=== PATIENT | female | born 1935 | race Caucasian/White ===

== ENCOUNTER 2017-10-21 08:37 | Emergency (ER) | payer MEDICARE, BC ==
[2017-10-21] MEDS ORDERED: SODIUM CHLORIDE 0.9% FLUSH 10 ML SOL IV PRN (08:42)
[2017-10-21 09:02] LABS: INR 0.98 (0.86-1.12)
[2017-10-21 09:05] LABS: BASOPHILS % (AUTO) 1 % (0-3); EOSINOPHILS % (AUTO) 1 % (0-9); HEMATOCRIT 43 % (35-47); LYMPHOCYTES % (AUTO) 26.3 % (10-50); MEAN CORPUSCULAR HEMOGLOBIN 29.3 pg (27.0-32.0); MEAN CORPUSCULAR HGB CONC 32.3 gm/dl (32.0-36.0); MEAN CORPUSCULAR VOLUME 91 fL (81-99); MONOCYTES % (AUTO) 5.6 % (0-12); NEUTROPHILS % (AUTO) 66.1 % (37-80)
[2017-10-21 09:07] LABS: BLOOD UREA NITROGEN 23 mg/dl (7-18); CALCIUM 8.9 mg/dl (8.5-10.1); CARBON DIOXIDE 28.4 mEq/L (21-32); CHLORIDE 103 mMol/L (98-107); CREATININE 1.16 mg/dl (0.60-1.00); GLUCOSE 111 mg/dl (74-106); POTASSIUM 4.1 mMol/L (3.5-5.1); SODIUM 139 mMol/L (136-145); TROP I < 0.017 ng/ml (0.000-0.056)
[2017-10-21 10:19] VITALS: O2SAT 98
[2017-10-21 14:02] VITALS: BP 159/80; PULSE 78; RESP 20; TEMP 97.2
== END 2017-10-21 12:40 | disposition home or self-care (01) | DRG 66 ==
LOC: ED 08:37
DX: I63.9 Cerebral infarction, unspecified (principal); R20.2 Paresthesia of skin
CPT/HCPCS: 70450; 70544; 70549; 70551; 80048; 82962; 84484; 85025; 85610; 85730; 93005; 99291; A9585